=== PATIENT | female | born 1980 | race Caucasian/White ===

== ENCOUNTER 2016-11-16 01:33 | Emergency (ER) | payer OTHER, BC ==
[2016-11-16] MEDS ORDERED: ONDANSETRON 4 MG/2ML 2 ML VIAL ONE (02:32)
[2016-11-16] MEDS ORDERED: HYDROMORPHONE HCL 1 MG/ML SYRINGE ONE (02:32)
[2016-11-16 02:55] LABS: ABSOLUTE NEUTROPHIL COUNT 6.8 K/mm3 (1.8-7.7); BASO % 0.4 % (0.2-1.0); EOS # 0.1 (0.0-0.5); EOS % 1.6 % (0.9-2.9); HEMATOCRIT 34.6 % (37.0-47.0); HEMOGLOBIN 11.6 gm/l (12.0-16.0); IMM NEUT% 0.4 % (0-1); LYMPH # 1.2 (1.0-4.8); LYMPH % 14.3 % (15-45); MEAN CELL VOLUME 83.2 fl (81.0-99.0); MEAN CORPUSCULAR HEMOGLOBIN 27.9 pg (27.0-31.0); MEAN CORPUSCULAR HGB CONC 33.5 g/dl (33.0-37.0); MEAN PLATELET VOLUME 9.7 fl (7.4-10.4); MONO # 0.4 (0.0-0.8); MONO % 4.2 % (4-12); NEUT % 79.1 % (43-75); PLATELET COUNT 285 K/mm3 (130-400); RED CELL DISTRIBUTION WIDTH 12.3 % (11.5-14.5)
[2016-11-16 02:56] LABS: SPECIFIC GRAVITY 1.025 (1.001-1.030); URINE BILIRUBIN NEGATIVE (NEGATIVE); URINE BLOOD 2+ (NEGATIVE); URINE COLOR LIGHT YELLOW; URINE GLUCOSE (UA) NEGATIVE (NEGATIVE); URINE LEUKOCYTE ESTERASE NEGATIVE (NEGATIVE); URINE NITRITE NEGATIVE (NEGATIVE); URINE PROTEIN NEGATIVE (NEGATIVE); URINE UROBILINOGEN NORMAL (0-1 mg/dl)
[2016-11-16 02:57] LABS: URINE APPEARANCE CLEAR
[2016-11-16 02:58] LABS: HCG,QUALITATIVE URINE POSITIVE
[2016-11-16 03:03] LABS: URINE BACTERIA 0; URINE WBC 0-2 /hpf
[2016-11-16 03:08] LABS: ALB/GLOB RATIO 1.2 (>1.0); ALBUMIN 4.2 gm/dL (3.5-5.7); CALCIUM 11.4 mg/dL (8.6-10.3)
[2016-11-16] MEDS ORDERED: LACTATED RINGERS 1,000 ML ONE (05:18)
--- NOTE | 2016-11-16 06:13 | US ---
OB COMP <14 WKS, OB TRANSVAGINAL HISTORY: Right lower quadrant pain with positive test. Beta-hCG level measured at 110. The patient is expected to be at 3 weeks 6 days gestational age. COMPARISONS: None. FINDINGS: Transabdominal and transvaginal ultrasonography was performed. There is no discrete intrauterine fluid collection visualized. The endometrial thickness is normal measured at 2.7 mm. No discrete myometrial masses are visualized. The right ovary is asymmetrically enlarged measuring 6.0 x 2.6 x 3.2 cm. The right ovary is somewhat heterogeneous though no focal mass is visualized. The left ovary measures 3.2 x 1.2 x 1.4 cm. There is a small amount of complex appearing free fluid identified within the pelvic cul-de-sac. Evaluation of the right lower quadrant was performed with graded compression over the cecum. The patient's appendix is not well identified. No masses or free fluid are seen within this location however. IMPRESSION: 1. No intrauterine gestation visualized. The right ovary is asymmetrically prominent in size and appears heterogeneous though no definite adnexal mass is observed. Considerations include early intrauterine or extrauterine gestations or a demise. Recommend serial beta-hCG levels and/or repeat ultrasound. 2. A small amount of complex appearing free fluid within the pelvic cul-de-sac. 3. Nonvisualization of the appendix within the right lower quadrant, though no masses or free fluid are seen. The findings were called to the emergency room at 0504 hours, 11/16/2016, by [facility].
--- NOTE | 2016-11-16 09:38 | CONS ---
CARLITOESTRELLA [id number] DATE OF CONSULTATION: November 16, 2016 HISTORY OF PRESENT ILLNESS: Patient is a 36-year-old woman, 3, para 2. She presents to the emergency room complaining of right lower quadrant pain. Patient has a complicated obstetric history. She did not know that she was . On presentation here, she has a positive test with a quantitative beta HCG at 110. Patient is planning a surrogate . On September 11, 2016, she had an embryo transferred. On September 21, 2016, approximately ten days after the transfer, she had a negative test. On September 26, 2016, she had a menstrual period. At that time, she started oral contraceptive pills. She was on continuous oral contraceptive pills for approximately six weeks. On November 09, 2016, she started Lupron 10 units per day. Patient had intercourse on November 07, 2016 and used condoms. She was on control pills at the time. She had intercourse one other time but cannot recall the exact date. On November 13, 2016, she had an endometrial biopsy at the fertility specialist's office. The purpose of this was to create an inflammatory response inside the uterus in order to increase the chances of a second transfer being successful. She had a small amount of bleeding following that which stopped. Patient has been having some lower abdominal discomfort for the past eight weeks since shortly after the embryo transfer. She states she did not get a test prior to the endometrial biopsy. She states the pain is in the right lower quadrant. She has increased pain with passage of gas and with bowel movement. She has increased pain when she eats. She has noticed a small amount of brown blood at times. Her pain worsened and she presented to the emergency room this morning. PAST MEDICAL HISTORY: No chronic illnesses. BUSINESS INTELLIGENCE CONSULTANT HISTORY: She has no history of sexually transmitted disease. She has no plans for within her family. OBSTETRIC HISTORY: Vaginal delivery times two. MEDICATIONS: 1. Vitamins. 2. Synthroid. Patient is not hypothyroid. This is for augmentation of her thyroid function for the surrogacy. ALLERGIES: NO KNOWN ALLERGIES. HABITS: Tobacco, none. PAST SURGICAL HISTORY: 1. Orthopedic pin in her right foot. 2. Tonsillectomy at age 29. REVIEW OF SYSTEMS: She is not had any fevers. She has no history of kidney stones. SOCIAL HISTORY: Patient is . She has two children. She works as a chief medical technologist. She is planning a surrogate for a couple in [place]. PHYSICAL EXAM: GENERAL: This is a woman of normal body habitus who appears in mild distress. CHEST: Is clear in all looney. HEART: Regular rate and rhythm without murmur. ABDOMEN: Soft, nontender in the upper abdomen. Costovertebral angle nontender on the left. Mildly tender on the right. Left lower quadrant minimally tender. Right lower quadrant mild to moderately tender. EXTREMITIES: Are normal. PELVIC: On digital pelvic exam, the left adnexa is negative. There is mild tenderness with motion of the cervix. There is mild to moderate tenderness in the right adnexal area and minimal tenderness on the left. The emergency room nurse, Carola, is present for the pelvic exam. LABORATORIES: Quantitative HCG 110. Hematocrit 36%. DIAGNOSTIC IMAGING: Pelvic ultrasound: We reviewed the films. The report states that the uterus appears normal. The uterine size is 11 x 5 x 5 cm. The right ovary is described as asymmetrically prominent measuring 6 x 3 x 3 with internal follicles. There is a small amount of complex appearing free fluid in the cul-de-sac. There are no adnexal masses. ASSESSMENT: 1. Abdominal pain, unknown cause. We discussed that some of her bowel symptoms associated with this are not typical for tubal . Her symptoms raise a concern for appendicitis. However, we could not do a CT scan at this time. 2. of unknown location and duration. The patient's scenario is not typical for a persistent following her transfer, however this is a possibility. It is also possible that she conceived with her even though she was on control pills and using condoms. Her having pain of course raises the concern for ectopic . However, because she is so early, we do not recommend laparoscopic at this time. We discussed her options. We recommend observation with serial quantitative titers. The patient agrees with this. Patient will be discharged to home with prescription for [place]. She is to follow up on Wednesday, in 48 hours, for a repeat HCG. Arrangements have been made for her to follow up with an clip riveter in our office. She is to call or come to the emergency room if her pain worsens. 3. With her pain and recent biopsy, this raises a concern for pelvic infection such as endometritis. Patient states she was given doxycycline for prophylaxis. We discussed that there is still a small chance of uterine infection even with sterile technique and antibiotics prophylaxis. We plan to give her empiric treatment in the form of Augmentin 875 mg twice a day for the next seven days. If her symptoms resolve, she can stop the antibiotic sooner. Cc: Farhad Lyons M.D.
[2016-11-17 12:20] LABS: CHLAMYDIA BD Negative (Negative); N.GONORRHOEAE BD Negative (Negative); SOURCE Urine (())
== END 2016-11-16 08:15 | disposition home or self-care (01) ==
LOC: ED 01:33
DX: O26.891 Other specified pregnancy related conditions, first trimester (principal); R10.9 Unspecified abdominal pain; Z3A.00 Weeks of gestation of pregnancy not specified
CPT/HCPCS: 87491; 87591; 81025; 84702; 85025; 80053; 81001; 76817; 76801; 96375; 99284; 96374; 96361; 99283; J1170; J2405; J7120

== ENCOUNTER 2016-11-18 10:14 | Day surgery (SDC) | payer OTHER, BC ==
[2016-11-18 12:48] LABS: ABSOLUTE NEUTROPHIL COUNT 4.2 K/mm3 (1.8-7.7); BASO % 0.5 % (0.2-1.0); EOS # 0.2 (0.0-0.5); EOS % 3.1 % (0.9-2.9); HEMATOCRIT 38.2 % (37.0-47.0); HEMOGLOBIN 12.6 gm/l (12.0-16.0); IMM NEUT% 0.3 % (0-1); LYMPH # 1.3 (1.0-4.8); LYMPH % 21.2 % (15-45); MEAN CELL VOLUME 85.1 fl (81.0-99.0); MEAN CORPUSCULAR HEMOGLOBIN 28.1 pg (27.0-31.0); MEAN PLATELET VOLUME 9.4 fl (7.4-10.4); MONO # 0.4 (0.0-0.8); MONO % 6.6 % (4-12); NEUT % 68.3 % (43-75); PLATELET COUNT 327 K/mm3 (130-400); RED CELL DISTRIBUTION WIDTH 12.4 % (11.5-14.5)
[2016-11-18] MEDS ORDERED: LACTATED RINGERS 1,000 ML ONE (14:47)
[2016-11-18] MEDS ORDERED: FENTANYL 100 MCG/2 ML VIAL ONE ×2 (16:01→16:14)
[2016-11-18] MEDS ORDERED: FENTANYL 100 MCG/2 ML VIAL IV PRN (16:19)
[2016-11-18] MEDS ORDERED: CEFAZOLIN SODIUM 1,000 MG VIAL ONE (16:58)
[2016-11-18] MEDS ORDERED: KETOROLAC TROMETHAMINE 30 MG/ML 1 ML VIAL ONE (16:58)
[2016-11-18] MEDS ORDERED: METOCLOPRAMIDE HCL 5 MG/ML 2ML VIAL ONE (16:58)
[2016-11-18] MEDS ORDERED: SODIUM CHLORIDE 0.9% FLUSH 10 ML ONE (16:58)
[2016-11-18] MEDS ORDERED: ROCURONIUM BROMIDE 10 MG/ML DOSE IV ONE (16:58)
[2016-11-18] MEDS ORDERED: PROPOFOL 20 ML IV ONE (16:58)
[2016-11-18] MEDS ORDERED: ONDANSETRON 4 MG/2ML 2 ML VIAL ONE (16:58)
[2016-11-18] MEDS ORDERED: FAMOTIDINE 10 MG/ML 2ML VIAL ONE (16:58)
[2016-11-18] MEDS ORDERED: MORPHINE SULFATE 4 MG/ML SYRINGE IV PRN (16:59)
[2016-11-18] MEDS ORDERED: LIDOCAINE 1%/EPI (MULTI DOSE) 20 ML VIAL ONE (16:59)
[2016-11-18] MEDS ORDERED: ATROPINE SULFATE 0.4 MG/1 ML VIAL IV PRN (16:59)
[2016-11-18] MEDS ORDERED: NALOXONE HCL 0.4 MG/ML VIAL IV PRN (16:59)
[2016-11-18] MEDS ORDERED: LABETALOL HCL 5 MG/ML 20ML VIAL IV PRN (16:59)
[2016-11-18] MEDS ORDERED: SODIUM CHLORIDE 0.9% 50 ML ONE (16:59)
[2016-11-18] MEDS ORDERED: ONDANSETRON 4 MG/2ML 2 ML VIAL IV PRN ×2 (16:59→21:00)
[2016-11-18] MEDS ORDERED: PROMETHAZINE HCL 25 MG/ML VIAL IM PRN (16:59)
[2016-11-18] MEDS ORDERED: MEPERIDINE 25 MG/ML SYRINGE IV PRN (16:59)
[2016-11-18] MEDS ORDERED: LACTATED RINGERS 1,000 ML IV SCH ×2 (17:00→18:13)
[2016-11-18] MEDS ORDERED: MORPHINE SULFATE 10 MG/ML SYRINGE ONE (17:36)
[2016-11-18] MEDS ORDERED: HYDROCODONE/ACETAMINOPHEN 5/325MG TABLET PO PRN (18:13)
[2016-11-18] MEDS ORDERED: DIPHENHYDRAMINE HCL 50 MG/1 ML VIAL IV PRN (18:13)
[2016-11-18] MEDS ORDERED: HYDROCODONE/ACETAMINOPHEN 5/325MG TABLET ONE (18:53)
--- NOTE | 2016-11-18 19:41 | HP ---
ESTRELLA ESTEBAN [id number] DESCRIPTION OF PROCEDURE: 11/18/2016 PREOPERATIVE DIAGNOSIS: Ectopic . PROCEDURE: LAPAROSCOPIC SALPINGECTOMY, POSSIBLE OOPHORECTOMY AND POSSIBLE SUCTION DILATION AND CURETTAGE. HISTORY OF PRESENT ILLNESS: The patient is a 36-year-old G-3, P-2 who presented two days ago to the emergency room complaining of right lower quadrant pain. The patient had been planning a surrogate and had an embryo transfer on 09/11/2016. The patient states that ten days later she had a negative serum HCG per infertility specialist. Subsequently on 09/26/2016, she had a menstrual period which was light for her. At that time she started oral contraceptive pills and had been using oral contraceptives, and on 11/09/2016 she started Lupron. The patient states that since the embryo transfer she had intercourse six times, however, had been on control and also because her is diabetic the patient is unconvinced that her subsequent is spontaneous. The patient theorizes that her was via the embryo transfer. Subsequently on 11/13/2016, the patient had an endometrial biopsy at the fertility specialist's office to create inflammatory response to increase the changes for the second transfer being successful, and had a small amount of bleeding following that. The patient states that since the embryo transfer had some lower abdominal discomfort, however, one week prior to her emergency room visit was starting to have right lower quadrant pain which waxed and waned, and improved with some bowel movement. Upon evaluation in the emergency room at that time her HCG was 110, however, the pelvic ultrasound did not show any intrauterine . The right ovary was asymmetrically prominent, measuring 6 x 3 x 3 with internal follicles, however, there were no adnexal masses noted at that time. The patient was then discharged with precautions for ectopic , to follow-up with Dr. Lyons. The next day after the emergency room visit, the patient went to see her infertility specialist which is Dr. Janes Carl, and at that time she had an ultrasound performed and an HCG. The patient's hemoglobin at that time was 13.0. The ultrasound done by Dr. Carl showed a 2.52 x 2.48 cm heterogeneous right adnexal mass immediately adjacent to normal right ovarian tissue, which was believed to be a possible hemorrhagic right ectopic . The patient's HCG was 83 at that time. The patient also had a fluid pocket of mixed heterogeneity immediately adjacent to the right adnexal mass which was 3.6 x 1.5 cm. At this point the patient was counseled by Dr. Carl, to follow-up with Dr. Lyons the next day. The patient was subsequently called by Dr. Lyons and recommended to go to the emergency room due to this diagnosis of ectopic . Upon this emergency room visit the patient had a repeat HCG which was 72. Repeat hemoglobin was 12.6. PAST SPECIALIST EMPLOYEE LABOR RELATIONS HISTORY: 1. The patient denies any history of sexually transmitted disease. 2. She is status post vaginal delivery times two. 3. The patient plans to be a surrogate carrier for in vitro . PAST MEDICAL HISTORY: Negative. PAST SURGICAL HISTORY: 1. Tonsillectomy. 2. Foot surgeries. ALLERGIES: No known drug allergies. PHYSICAL EXAMINATION: GENERAL: The patient is in no apparent distress. HEART: Regular rate and rhythm. LUNGS: Clear to auscultation bilaterally. ABDOMEN: Soft. Nontender in the upper abdomen. Nondistended. The patient has some mild tenderness in the right lower quadrant, however, without guarding or rebound. The left lower quadrant is minimally tender. EXTREMITIES: Exam is normal. ASSESSMENT/PLAN: This is a 36-year-old G-3, P-2 with positive HCG which is declining, however, ultrasound was concerning for ectopic . It is unknown whether this is ectopic from the embryo transfer from August versus subsequent spontaneous , however, considering patient's symptomology and positive HCG levels, as well as right lower quadrant pain, there is adequate concern for ectopic . I have recommended laparoscopy at this time with salpingectomy, likely on the right side. However, there is also the possibility that the ectopic is in the ovary and therefore the patient is consented for right oophorectomy, as well as possible suction dilation and curettage should ectopic not be immediately clear. The procedure, indications and risks have been reviewed, including the risks of bleeding, infection or injury to bowel, bladder or other organs. I have also suggested methotrexate, as the patient would be a candidate considering she is hemodynamically stable with low HCG levels, however, the patient is adamant that she does not desire methotrexate at this time. I have also discussed that if it is not immediately clear the ectopic is not ovarian, that we should favor ovarian conservation to aid in the patient's surrogacy efforts. The patient has also indicated a desire for tubal ligation at this time, however, I do not recommend tubal ligation for sterilization purposes in the emergency setting, as I recommend that sterilization be thoroughly counseled and with some time for consideration. Preoperative instructions and postoperative expectations have been reviewed. The patient stated that she had been given Vicodin previously and feels that this should be adequate for her postoperative pain control.
[2016-11-18] MEDS ORDERED: KETOROLAC TROMETHAMINE 30 MG/ML 1 ML VIAL IV PRN (23:30)
--- NOTE | 2016-11-19 07:06 | OP ---
Cielo Beatty [id number] DATE OF PROCEDURE: 11/18/2016 PREOPERATIVE DIAGNOSIS: Ectopic . POSTOPERATIVE DIAGNOSIS: Ectopic . PROCEDURE: A laparoscopic right salpingectomy. SURGEON: Janes Riddle M.D. ANESTHESIA: General. ESTIMATED BLOOD LOSS: Minimal. COMPLICATIONS: None. OPERATIVE FINDINGS: Include a ectopic tubal on the right side. Ovaries appear normal bilaterally. Uterus appears normal as well. OPERATIVE COURSE: The patient was taken to the operating room and placed under general anesthesia. The patient was then placed in lithotomy and bladder was emptied with a straight catheter. A weighted speculum was then placed and a uterine manipulator was placed on the cervix. Attention was then paid to the abdomen and lidocaine with epinephrine was injected locally at the umbilicus. A 10 mm vertical incision was made at the level of the umbilicus and a Veress needle was then placed easily. Intraabdominal placement was confirmed with saline syringe. The abdomen was insufflated to 15 mmHg and the Veress needle was then removed. A 11 mm port was then placed under direct visualization with the camera and scope. Subsequently a 5 mm incision was made at the midline suprapubic area and a 5 mm port was then placed under direct visualization. The uterus was then elevated with a uterine manipulator and the right ovary and tube was then surveyed. There is indeed a right ectopic . A 10 mm incision was then made on the right lower quadrant and subsequently a 11 mm port was then placed under direct visualization. The ectopic and tube were then grasped and using a 5 mm Ligasure instrument the tube was then excised starting proximally and then moving distally. After the tube was completely excised it was placed into an Endocatch bag and then removed from the 10 mm port on the right lower quadrant. Subsequently the pelvis was then irrigated, suctioned, and found to be hemostatic. The right ovary was found to be hemostatic. All instruments were then removed and the abdomen was then desufflated. The ports were then removed. The 10 mm incisions were then closed with 0 Vicryl and 3-0 Monocryl and the 5 mm incision was then closed with 3-0 Monocryl. Further injection of local anesthesia has been injected at the incision sites. The uterine manipulator was then removed. The patient was then recovered from anesthesia and taken to the recovery room in stable condition. JOB: [id number]
--- NOTE | 2016-11-23 11:41 | SURGPATH ---
[facility] [address] [place] [id number] Patient Name: ESTRELLA ESTEBAN MR#: [id number] : 1980 Gender: F Specimen #: [id number] Collected: 11/18/2016 Received: 11/20/2016 Reported: 11/23/2016 Submitting Phys: BRADY DIAMOND Copy To Phys: [facility] Clinical History / Pre-Operative Diagnosis: Ectopic Specimen Source / Surgical Procedure Performed: Right ectopic Interpretation: RIGHT FALLOPIAN TUBE, SALPINGECTOMY: - TUBAL WITH RUPTURE Electronically Signed Out Trevon Styles M.D. Gross Description: The specimen is received in a formalin filled container labeled with the patient's name and "right ectopic ". A dilated dark purple deluna fallopian tube segment with free and delicate fimbriated end is 6.5 cm in length and has a external diameter of up to 2.4 cm. Near the proximal end is a 1.8 x 1 cm defect, with protruding blood clot. The lumen is dilated with blood clot. There is no or placental tissue. Entuirely subitted in 9 cassettes. Fady Velez, PHaydenA. Microscopic Description: A dilated fallopian tube contains abundant blood and clot. There are scattered degenerating chorionic villi representing products of conception. 1: 81447 O00.8
== END 2016-11-18 19:30 | disposition home or self-care (01) ==
LOC: ED 10:14 → SDC 13:28
PROVIDERS: ATTEND Obstetrics & Gynecology
PROC: 0UT54ZZ Resection of Right Fallopian Tube, Percutaneous Endoscopic Approach (ICD-10-PCS; principal; 2016-11-18)
PROC: 10T24ZZ Resection of Products of Conception, Ectopic, Percutaneous Endoscopic Approach (ICD-10-PCS; principal; 2016-11-18)
DX: O00.10 Tubal pregnancy without intrauterine pregnancy (principal); Z3A.00 Weeks of gestation of pregnancy not specified
CPT/HCPCS: 59151; 85025; 86901; 86850 ×3; J0690; J3010 ×2; J2270; J2765; J1885; J2405; J7120; A9270